=== PATIENT | female | born 1955 | race Caucasian/White ===

== ENCOUNTER → 2017-05-08 | Outpatient (CLI) | payer MEDICARE, BC ==
[~2017-05-08] MED LIST: ALEN70TA5 PO; CYCL-259 PO; FENT1PAT77 TD; IBUP800T PO; LEVO75TA5 PO; LOSA50TA6 PO; TRAM50TA2 PO; VALA500T PO
== END | disposition home or self-care (01) ==
LOC: CFH 12:21
PROVIDERS: ATTEND Pediatrics Pediatric Hematology-Oncology
DX: Z13.820 Encounter for screening for osteoporosis (principal); M81.0 Age-related osteoporosis without current pathological fracture
CPT/HCPCS: 77080

== ENCOUNTER → 2018-03-30 | Outpatient (CLI) | payer MEDICARE, BC ==
[~2018-03-30] MED LIST changes: +IBUP-1223 PO; -IBUP800T PO
== END | disposition home or self-care (01) ==
LOC: CFH 08:26
PROVIDERS: ATTEND Physical Medicine & Rehabilitation
DX: M47.26 Other spondylosis with radiculopathy, lumbar region (principal)
CPT/HCPCS: 72131

== ENCOUNTER 2018-12-07 20:17 | Emergency (ER) | payer MEDICARE, BC ==
[~2018-12-07] VITALS: Ht 165.1 cm; Wt 58.9 kg
[~2018-12-07 20:17] MED LIST changes: -ALEN70TA5 PO; +ALEN70TA6 PO; +LOSA50TA14 PO; -LOSA50TA6 PO
--- NOTE | 2018-12-07 20:36 | NUR ---
FAMIILA SARKAR, AT BEDSIDE TO EVALUATE PT.
--- NOTE | 2018-12-07 21:12 | NUR ---
Pt to imaging, with tech, via guanastasia.
[2018-12-07] MEDS ORDERED: KETOROLAC 60 MG/2 ML IM ONE (21:30)
[2018-12-07] MEDS ORDERED: KETOROLAC 30 MG/1 ML ONE (21:40)
[2018-12-07] MEDS ORDERED: BACL-19 PO (21:50)
[2018-12-07] MEDS ORDERED: TRAM50TA2 PO (21:50)
[2018-12-07] MEDS ORDERED: PROP60TA PO (21:50)
--- NOTE | 2018-12-07 22:08 | NUR ---
Dr. Moran at bedside to evaluate pt and discuss ED findings and POC.
--- NOTE | 2018-12-07 22:22 | NUR ---
Pt to imaging, with tech, via guanastasia.
--- NOTE | 2018-12-07 22:30 | NUR ---
Pt back to room from imaging.
--- NOTE | 2018-12-07 23:22 | NUR ---
Deloris SARKAR, at bedside to discuss ED findings and d/c information.
[2018-12-07 23:33] VITALS: BP 132/74
== END 2018-12-07 23:34 | disposition home or self-care (01) ==
LOC: ED 21:43
DX: S29.019A Strain of muscle and tendon of unspecified wall of thorax, initial encounter (principal); S16.1XXA Strain of muscle, fascia and tendon at neck level, initial encounter; S50.02XA Contusion of left elbow, initial encounter; I10 Essential (primary) hypertension; E11.9 Type 2 diabetes mellitus without complications; F32.9 Major depressive disorder, single episode, unspecified; W01.0XXA Fall on same level from slipping, tripping and stumbling without subsequent striking against object, initial encounter; Y93.89 Activity, other specified; Y92.009 Unspecified place in unspecified non-institutional (private) residence as the place of occurrence of the external cause; Y99.8 Other external cause status
CPT/HCPCS: 71101; 72125; 72128; 73030; 96372; 99284; J1885